=== PATIENT | female | born 1935 | race Two or more races ===

== ENCOUNTER 2018-03-29 11:28 | Emergency (ER) | payer OTHER, MEDICAID ==
[~2018-03-29] VITALS: Ht 160 cm; Wt 51.3 kg
[2018-03-29 12:23] VITALS: BP 137/71
== END 2018-03-29 14:32 | disposition home or self-care (01) ==
LOC: ER 11:29
DX: K64.9 Unspecified hemorrhoids (principal); Z95.0 Presence of cardiac pacemaker
CPT/HCPCS: 74176; 93005

== ENCOUNTER 2018-04-27 09:39 | Emergency (ER) | payer OTHER, MEDICAID ==
[~2018-04-27] VITALS: Ht 157.5 cm; Wt 50.8 kg
[2018-04-27 10:33] LABS: Urine Bacteria FEW /hpf (None Seen); Urine Blood Negative /uL (Negative); Urine Mucus FEW (None Seen); Urine Specific Gravity 1.018 (1.001-1.035); Urine WBC 8 /hpf (0 - 5)
[2018-04-27 11:03] LABS: Basophils # (auto) 0.1 uL; Eosinophils # (auto) 0 uL; Eosinophils % (auto) 0.8 % (0.0-7.0); Hematocrit 38.6 % (36.0-46.0); Lymphocytes # (auto) 1.3 uL; Lymphocytes % (auto) 22.1 % (10.0-50.0); Mean Corpuscular Hemoglobin 33.4 pg (28.0-32.0); Mean Corpuscular Hgb Conc. 33.8 g/dL (32.0-36.0); Monocytes # (auto) 0.4 uL; Monocytes % (auto) 6.4 % (0.0-12.0); Neutrophils # (auto) 4.1 uL; Neutrophils % (auto) 69.7 % (37.0-80.0); Platelet Count (auto) 144 10^3/uL (140-450); White Blood Cell 5.9 10^3/uL (4.4-10.8)
[2018-04-27 11:18] LABS: Albumin 3.4 g/dL (3.4-5.0); Anion Gap 7 (5-15); Blood Urea Nitrogen 15 mg/dL (7-18); Calcium 8.7 mg/dL (8.5-10.1); Carbon Dioxide 25 mmol/L (21-32); Chloride 104 mmol/L (98-107); Glucose 123 mg/dL (74-106); Sodium 136 mmol/L (136-145)
[2018-04-27 11:23] LABS: Alanine Aminotransferase 17 U/L (13-56); Alkaline Phosphatase 85 U/L (45-117); Aspartate Aminotransferase 27 U/L (15-37); BUN/Creatinine Ratio 12.9; Bilirubin, Total 0.5 mg/dL (0.2-1.0); GFR African American 58 mL/min; GFR Non-African American 48 mL/min; Total Protein 7.1 g/dL (6.4-8.2)
[2018-04-27] MEDS: cefTRIAXone 1GM/50ML D5W 50 ML IV ONE (12:08)
[2018-04-27] MEDS: cloNIDine HCL 0.1 MG TAB PO ONE (12:08)
[2018-04-27 13:16] VITALS: BP 130/78
== END 2018-04-27 13:18 | disposition home or self-care (01) ==
LOC: ER 09:39
DX: N39.0 Urinary tract infection, site not specified (principal); E78.5 Hyperlipidemia, unspecified; I10 Essential (primary) hypertension; Z90.49 Acquired absence of other specified parts of digestive tract; Z86.73 Personal history of transient ischemic attack (TIA), and cerebral infarction without residual deficits; Z96.89 Presence of other specified functional implants
CPT/HCPCS: 36415; 71046; 80053; 81001; 84484; 85025; 93005; 94761; 96365; 99284; J0696